=== PATIENT | female | born 1950 | race Caucasian/White ===

== ENCOUNTER → 2021-09-15 | Outpatient (CLI) | payer MEDICARE ==
[~2021-09-15] MED LIST: IOPAMIDOL 370 MG/ML 100 ML INFUS..BTL INJ ONE
[2021-09-15 15:18] LABS: CREATININE, SERUM 0.81 mg/dL (0.57-1.11)
== END ==
LOC: CT 13:59
PROVIDERS: ATTEND Internal Medicine
DX: R22.1 Localized swelling, mass and lump, neck (principal)
CPT/HCPCS: 36415; 70491; 82565; 84520; Q9967

== ENCOUNTER 2023-08-31 16:19 | Emergency (ER) | payer MEDICARE ==
[~2023-08-31] VITALS: Ht 162.6 cm; Wt 69.9 kg
[2023-08-31] MEDS: HYDROCODONE/APAP 5MG-325MG TAB PO ONE (17:24)
[2023-08-31] MEDS: TETANUS/DIPHTHERIA TOX ADULT 0.5 ML SYR IM ONE (17:35)
[2023-08-31 18:00] VITALS: PULSE 94; RESP 16; TEMP 98.2; O2SAT 96
== END 2023-08-31 18:05 | disposition home or self-care (01) ==
LOC: ER 16:24
DX: S01.01XA Laceration without foreign body of scalp, initial encounter (principal); W01.0XXA Fall on same level from slipping, tripping and stumbling without subsequent striking against object, initial encounter; Y92.89 Other specified places as the place of occurrence of the external cause; I10 Essential (primary) hypertension; E03.9 Hypothyroidism, unspecified; Z86.73 Personal history of transient ischemic attack (TIA), and cerebral infarction without residual deficits
CPT/HCPCS: 36415; 70450; 72125; 82948; 90471; 90714; 99284

== ENCOUNTER 2023-11-10 10:38 | Inpatient (IN) | payer MEDICARE ==
[~2023-11-10] VITALS: Ht 162.6 cm; Wt 69.9 kg
[2023-11-10 10:38] VITALS: TEMP 98.7
[2023-11-10] MEDS: SODIUM CHLORIDE 0.9% 1000ML 1,000 ML IV STA (11:37)
[2023-11-10 11:47] LABS: INR 0.96; PARTIAL THROMBOPLASTIN TIME 27.4 seconds (23.8-35.5); PROTHROMBIN TIME 13.3 seconds (11.9-14.5)
[2023-11-10 11:54] LABS: BASOPHILS % 0.4 % (0.0-1.0); HEMATOCRIT 43.2 % (34.2-44.1); HEMOGLOBIN 13.2 g/dL (12.0-16.0); LYMPHOCYTES # (AUTO) 0.8 (1.0-3.2); LYMPHOCYTES % 11.8 % (18.0-39.1); MEAN CORPUSCULAR HEMOGLOBIN 26.1 pg (28-32); MEAN CORPUSCULAR HGB CONC 30.6 g/dL (31-35); MEAN CORPUSCULAR VOLUME 85.4 fL (81-99); MONOCYTES # (AUTO) 0.6 (0.2-0.8); MONOCYTES % 8.5 % (4.4-11.3); NEUTROPHILS # (AUTO) 5.4 (2.1-6.9); NEUTROPHILS % 78.9 % (38.7-80.0); PLATELET COUNT 151 x10e3/uL (140-360); RED BLOOD COUNT 5.06 x10e6/uL (3.6-5.1); RED CELL DISTRIBUTION WIDTH 14.1 % (11.7-14.4)
[2023-11-10 12:15] LABS: CLARITY,URINE CLOUDY (CLEAR); COLOR,URINE YELLOW (YELLOW); LEUKOCYTE ESTERASE ,URINE MODERATE (NEGATIVE); NITRITE,URINE POSITIVE (NEGATIVE); PH,URINE 6 (5 - 7)
[2023-11-10 12:16] LABS: BILIRUBIN,URINE NEGATIVE (NEGATIVE); GLUCOSE, URINE NEGATIVE (NEGATIVE); KETONES,URINE 1+ (NEGATIVE); PROTEIN,URINE DIPSTICK NEGATIVE (NEGATIVE); URINE UROBILINOGEN 0.2 mg/dL (0.2 - 1)
[2023-11-10 12:19] LABS: INFLUENZAE A&B ANTIGEN (RAPID) NEGATIVE (NEGATIVE); RESPIRATORY SYNC. VIRUS NEGATIVE (NEGATIVE)
[2023-11-10 12:25] LABS: BACTERIA,URINE MANY /HPF; EPITHELIAL CELLS,URINE MODERATE /LPF; RBC,URINE 0-5 /HPF (0-5); TRANSITIONAL EPI CELLS,URINE FEW; WBC,URINE (MAN) 21-50 /HPF (0-5)
[2023-11-10 12:31] LABS: ALBUMIN 3.9 g/dL (3.5-5.0); ALBUMIN/GLOBULIN RATIO 1.1 (0.8-2.0); ANION GAP 15.8 mmol/L (8-16); BILIRUBIN,TOTAL 1.1 mg/dL (0.2-1.2); CALCIUM 9.7 mg/dL (8.4-10.2); CREATININE, SERUM 0.81 mg/dL (0.57-1.11); MAGNESIUM 1.7 MG/DL (1.3-2.1); POTASSIUM 3.8 mmol/L (3.5-5.1); TOTAL PROTEIN 7.4 g/dL (6.5-8.1)
[2023-11-10 12:36] LABS: TROPONIN I 0.001 ng/mL (0-0.300)
[2023-11-10] MEDS: Vancomycin IV 1 GM in SODIUM CHLORIDE 0.9% 250ML 250 ML IV ONE (13:37)
[2023-11-10] MEDS ORDERED: IOPAMIDOL 370 MG/ML 100 ML INFUS..BTL INJ ONE ×2 (13:51→18:00)
[2023-11-10 15:15] VITALS: PULSE 88; RESP 24; O2SAT 99
[2023-11-10] MEDS ORDERED: ONDANSETRON HCL INJ 2MG/ML 2ML 2 MG/ML VIAL IV PRN (15:30)
[2023-11-10 16:00] VITALS: PULSE 88; RESP 24
[2023-11-10 17:20] VITALS: BP 159/74; PULSE 89; RESP 22; TEMP 100.3; O2SAT 94
[2023-11-10] MEDS: ACETAMINOPHEN 325 MG TAB PO PRN (19:08)
[2023-11-10] MEDS: SODIUM CHLORIDE 0.9% 1000ML 1,000 ML IV SCH (19:08)
[2023-11-10 19:16] VITALS: PULSE 88; RESP 20; O2SAT 96
[2023-11-10 20:00] VITALS: BP 142/74; PULSE 86; RESP 18; TEMP 98.5; O2SAT 94
[2023-11-10] MEDS ORDERED: LOSARTAN POTASS50 MG PO (20:31)
[2023-11-10] MEDS ORDERED: AMLODIPINE BESYL5 MG PO (20:31)
[2023-11-10] MEDS ORDERED: AMITRIPTYLINE H75 MG PO (20:31)
[2023-11-10] MEDS ORDERED: METFORMIN HCL1000 MG PO (20:31)
[2023-11-10] MEDS ORDERED: LEVOTHYROXINE50 MCG PO (20:31)
[2023-11-10] MEDS ORDERED: PRAVASTATIN SOD10 MG PO (20:31)
[2023-11-10] MEDS ORDERED: LEVOFLOXACIN500 MG PO (20:31)
[2023-11-10] MEDS ORDERED: METOPROLOL SUCC25 MG PO (20:31)
[2023-11-10] MEDS ORDERED: ASPIRIN81 MG PO (20:31)
[2023-11-11] VITALS (11 sets, daily range): BP systolic 139–167; BP diastolic 68–82; PULSE 81–98; RESP 16–20; TEMP 98.2–99.5; O2SAT 88–98
[2023-11-11 08:12] LABS: BASOPHILS % 0.7 % (0.0-1.0); EOSINOPHILS % 0.2 % (0.0-6.0); HEMATOCRIT 37.2 % (34.2-44.1); HEMOGLOBIN 11.7 g/dL (12.0-16.0); LYMPHOCYTES # (AUTO) 0.6 (1.0-3.2); LYMPHOCYTES % 13.3 % (18.0-39.1); MEAN CORPUSCULAR HEMOGLOBIN 26.8 pg (28-32); MEAN CORPUSCULAR HGB CONC 31.5 g/dL (31-35); MEAN CORPUSCULAR VOLUME 85.1 fL (81-99); MONOCYTES # (AUTO) 0.5 (0.2-0.8); MONOCYTES % 11.2 % (4.4-11.3); NEUTROPHILS # (AUTO) 3.3 (2.1-6.9); NEUTROPHILS % 74.4 % (38.7-80.0); PLATELET COUNT 143 x10e3/uL (140-360); RED BLOOD COUNT 4.37 x10e6/uL (3.6-5.1); RED CELL DISTRIBUTION WIDTH 14.1 % (11.7-14.4); WHITE BLOOD COUNT 4.45 x10e3/uL (4.8-10.8)
[2023-11-11 08:53] LABS: ALBUMIN 3.2 g/dL (3.5-5.0); ANION GAP 14.1 mmol/L (8-16); BILIRUBIN,TOTAL 0.5 mg/dL (0.2-1.2); CALCIUM 8.7 mg/dL (8.4-10.2); CHOL/HDL RATIO 2.6 (3.0-3.6); CREATININE, SERUM 0.65 mg/dL (0.57-1.11); TOTAL PROTEIN 6.3 g/dL (6.5-8.1)
[2023-11-11 08:54] LABS: POTASSIUM 3.1 mmol/L (3.5-5.1)
[2023-11-11 09:02] LABS: TROPONIN I 0.003 ng/mL (0-0.300)
[2023-11-11] MEDS: METFORMIN HCL 500 MG TAB PO SCH (09:13)
[2023-11-11] MEDS: AMLODIPINE BESYLATE 5 MG TAB PO SCH (09:14)
[2023-11-11] MEDS: ASPIRIN 81 MG CHEW TAB PO SCH (09:14)
[2023-11-11] MEDS: LEVOTHYROXINE SODIUM 50 MCG TAB PO SCH (09:14)
[2023-11-11] MEDS: METOPROLOL SUCCINATE 25 MG TAB XL PO SCH (09:14)
[2023-11-11 14:59] LABS: TROPONIN I 0.008 ng/mL (0-0.300)
[2023-11-11] MEDS: AMITRIPTYLINE HCL 25 MG TAB PO SCH (21:17)
[2023-11-11] MEDS: PRAVASTATIN 20 MG TAB PO SCH (21:17)
[2023-11-12] VITALS (13 sets, daily range): BP systolic 150–172; BP diastolic 66–83; PULSE 81–92; RESP 16–20; TEMP 98–99.3; O2SAT 95–100
[2023-11-13] VITALS (9 sets, daily range): BP systolic 135–172; BP diastolic 67–81; PULSE 77–99; RESP 17–20; TEMP 97.6–98.7; O2SAT 93–97
[2023-11-13] MEDS ORDERED: ONDANSETRON HCL 4 MG ORAL DISINTEGRATING TAB PO PRN (13:00)
[2023-11-14] VITALS (7 sets, daily range): BP systolic 147–168; BP diastolic 77–83; PULSE 75–84; RESP 18–20; TEMP 97.4–97.7; O2SAT 92–96
[2023-11-15] MEDS ORDERED: AZITHROMYCIN 250 MG TAB PO SCH (06:00)
== END 2023-11-14 10:55 | disposition home or self-care (01) | DRG 177 ==
LOC: ER 10:59 → ERHOLD 15:24 → MED/SURG3 16:20
PROVIDERS: ADMIT Internal Medicine; ATTEND Internal Medicine
DX: U07.1 COVID-19 (principal); G93.41 Metabolic encephalopathy; Z16.24 Resistance to multiple antibiotics; N39.0 Urinary tract infection, site not specified; E11.9 Type 2 diabetes mellitus without complications; I10 Essential (primary) hypertension; E03.9 Hypothyroidism, unspecified; F43.10 Post-traumatic stress disorder, unspecified; F41.9 Anxiety disorder, unspecified; F32.A Depression, unspecified; Z79.84 Long term (current) use of oral hypoglycemic drugs; Z79.890 Hormone replacement therapy; Z86.73 Personal history of transient ischemic attack (TIA), and cerebral infarction without residual deficits; Z90.49 Acquired absence of other specified parts of digestive tract; Z90.710 Acquired absence of both cervix and uterus; Z88.2 Allergy status to sulfonamides; Z87.891 Personal history of nicotine dependence
CPT/HCPCS: 36415; 51700; 70450; 71045; 71260; 80053; 80061; 81001; 82140; 82550; 82948; 83605; 83735; 83880; 84484; 85025; 85610; 85730; 87040; 87086; 87186; 87400; 87420; 93005; 94799; 99252; 99284; J0696; J7030; J7050; Q9967; U0002

== ENCOUNTER 2024-08-11 13:36 | Emergency (ER) | payer MEDICARE ==
[~2024-08-11] VITALS: Ht 162.6 cm; Wt 69.9 kg
[~2024-08-11 13:36] MED LIST changes: +AMITRIPTYLINE H75 MG PO; +AMLODIPINE BESYL5 MG PO; +ASPIRIN81 MG PO; -IOPAMIDOL 370 MG/ML 100 ML INFUS..BTL INJ ONE; +LEVOFLOXACIN500 MG PO; +LEVOTHYROXINE50 MCG PO; +LOSARTAN POTASS50 MG PO; +METFORMIN HCL1000 MG PO; +METOPROLOL SUCC25 MG PO; +PRAVASTATIN SOD10 MG PO
[2024-08-11] MEDS ORDERED: ONDANSETRON HCL INJ 2MG/ML 2ML 2 MG/ML VIAL ONE (15:18)
[2024-08-11] MEDS: ONDANSETRON HCL INJ 2MG/ML 2ML 2 MG/ML VIAL IV STA (15:24)
[2024-08-11] MEDS: SODIUM CHLORIDE 0.9% 1000ML 1,000 ML IV STA (15:24)
[2024-08-11 15:35] LABS: BASOPHILS % 0.6 % (0.0-1.0); EOSINOPHILS # (AUTO) 0.1 (0.0-0.4); EOSINOPHILS % 0.8 % (0.0-6.0); HEMATOCRIT 38.1 % (34.2-44.1); HEMOGLOBIN 12.2 g/dL (12.0-16.0); LYMPHOCYTES # (AUTO) 1.4 (1.0-3.2); LYMPHOCYTES % 20.8 % (18.0-39.1); MEAN CORPUSCULAR HEMOGLOBIN 27.7 pg (28-32); MEAN CORPUSCULAR VOLUME 86.6 fL (81-99); MONOCYTES # (AUTO) 0.6 (0.2-0.8); MONOCYTES % 8.6 % (4.4-11.3); NEUTROPHILS # (AUTO) 4.6 (2.1-6.9); NEUTROPHILS % 68.7 % (38.7-80.0); PLATELET COUNT 223 x10e3/uL (140-360); RED CELL DISTRIBUTION WIDTH 13.4 % (11.7-14.4); WHITE BLOOD COUNT 6.63 x10e3/uL (4.8-10.8)
[2024-08-11 15:41] LABS: CLARITY,URINE SL CLOUDY (CLEAR); COLOR,URINE YELLOW (YELLOW); GLUCOSE, URINE NEGATIVE (NEGATIVE); KETONES,URINE NEGATIVE (NEGATIVE); LEUKOCYTE ESTERASE ,URINE SMALL (NEGATIVE); NITRITE,URINE POSITIVE (NEGATIVE); PH,URINE 5.5 (5 - 7); PROTEIN,URINE DIPSTICK NEGATIVE (NEGATIVE)
[2024-08-11 15:42] LABS: AMPHETAMINES SCREEN,URINE NEGATIVE (NEGATIVE); BENZODIAZEPINES SCREEN,URINE NEGATIVE (NEGATIVE); BILIRUBIN,URINE NEGATIVE (NEGATIVE); CANNABINOIDS SCREEN,URINE NEGATIVE (NEGATIVE); COCAINE SCREEN,URINE NEGATIVE (NEGATIVE); METHADONE SCREEN, URINE NEGATIVE (NEGATIVE); OPIATES SCREEN,URINE NEGATIVE (NEGATIVE); PHENCYCLIDINE SCREEN,URINE NEGATIVE (NEGATIVE); URINE UROBILINOGEN 0.2 mg/dL (0.2 - 1)
[2024-08-11 15:44] LABS: INR 0.92; PROTHROMBIN TIME 13.2 seconds (11.9-14.5)
[2024-08-11 15:45] LABS: BACTERIA,URINE MANY /HPF; EPITHELIAL CELLS,URINE RARE /LPF
[2024-08-11 15:45] LABS: PARTIAL THROMBOPLASTIN TIME 29.2 seconds (23.8-35.5)
[2024-08-11 15:54] LABS: ALBUMIN 3.9 g/dL (3.5-5.0); ALBUMIN/GLOBULIN RATIO 1.1 (0.8-2.0); ANION GAP 18.8 mmol/L (8-16); BILIRUBIN,TOTAL 0.9 mg/dL (0.2-1.2); CALCIUM 9.4 mg/dL (8.4-10.2); CREATININE, SERUM 0.81 mg/dL (0.57-1.11); MAGNESIUM 1.6 MG/DL (1.3-2.1); POTASSIUM 3.8 mmol/L (3.5-5.1); TOTAL PROTEIN 7.3 g/dL (6.5-8.1)
[2024-08-11 16:00] LABS: TROPONIN I 0.009 ng/mL (0-0.300)
[2024-08-11] MEDS ORDERED: CEFDINIR300 MG PO (16:43)
[2024-08-11 16:45] VITALS: PULSE 54; RESP 16; TEMP 98.7; O2SAT 98
== END 2024-08-11 16:55 | disposition home or self-care (01) ==
LOC: ER 13:43
DX: R41.82 Altered mental status, unspecified (principal); N39.0 Urinary tract infection, site not specified; I10 Essential (primary) hypertension; E11.65 Type 2 diabetes mellitus with hyperglycemia; E78.5 Hyperlipidemia, unspecified; E03.9 Hypothyroidism, unspecified; R94.31 Abnormal electrocardiogram [ECG] [EKG]; Z86.73 Personal history of transient ischemic attack (TIA), and cerebral infarction without residual deficits
CPT/HCPCS: 36415; 70450; 71045; 80053; 80307; 81001; 82550; 83735; 84484; 85025; 85610; 85730; 87040; 87086; 87186; 93005; 99284; J2405; J7030

== ENCOUNTER 2024-09-24 14:59 | Emergency (ER) | payer MEDICARE ==
[~2024-09-24] VITALS: Ht 152.4 cm; Wt 77.6 kg
[~2024-09-24 14:59] MED LIST changes: +CEFDINIR300 MG PO
[2024-09-24 15:31] VITALS: PULSE 84; RESP 16; TEMP 98.7
[2024-09-24 15:48] LABS: BASOPHILS % 0.8 % (0.0-1.0); EOSINOPHILS % 3.0 % (0.0-6.0); LYMPHOCYTES % 23.9 % (18.0-39.1); MONOCYTES % 9.4 % (4.4-11.3); NEUTROPHILS % 62.6 % (38.7-80.0); RED CELL DISTRIBUTION WIDTH 14.0 % (11.7-14.4)
[2024-09-24 16:11] LABS: EST GLOMERULAR FILTRATION RATE 82.0 ML/MIN (>=60)
[2024-09-24] MEDS: SODIUM CHLORIDE 0.9% 1000ML 1,000 ML IV STA (19:47)
[2024-09-24 22:41] VITALS: BP 146/86; PULSE 77; RESP 14; TEMP 97.9; O2SAT 97
== END 2024-09-24 22:44 | disposition home or self-care (01) ==
LOC: ER 16:53
DX: R44.3 Hallucinations, unspecified (principal); N39.0 Urinary tract infection, site not specified; R53.1 Weakness; R53.81 Other malaise; I10 Essential (primary) hypertension; E11.9 Type 2 diabetes mellitus without complications; E78.5 Hyperlipidemia, unspecified; E03.9 Hypothyroidism, unspecified; Z86.73 Personal history of transient ischemic attack (TIA), and cerebral infarction without residual deficits
CPT/HCPCS: 36415; 70450; 71045; 80053; 80320; 82550; 83880; 84484; 85025; 99284